=== PATIENT | male | born 1970 ===

== ENCOUNTER 2023-12-19 21:15 | Emergency (ER) | payer OTHER ==
[~2023-12-19] VITALS: Ht 180.3 cm; Wt 119.1 kg
[2023-12-19 21:28] VITALS: BP 145/80; PULSE 93; RESP 18; TEMP 97.5; O2SAT 98
[2023-12-19] MEDS: OxyCODONE HCL 5 MG IR TABLET PO ONE (22:38)
[2023-12-19] MEDS ORDERED: ACET-3385 PO (23:08)
[2023-12-19] MEDS ORDERED: OXYC5 PO (23:08)
== END 2023-12-19 23:31 | disposition home or self-care (01) ==
LOC: EMS 21:15
DX: S76.111A Strain of right quadriceps muscle, fascia and tendon, initial encounter (principal); I10 Essential (primary) hypertension; W10.9XXA Fall (on) (from) unspecified stairs and steps, initial encounter; Y93.89 Activity, other specified; Y92.89 Other specified places as the place of occurrence of the external cause; Y99.8 Other external cause status
CPT/HCPCS: 29505; 99283